=== PATIENT | male | born 1985 | race Caucasian/White ===

== ENCOUNTER 2018-09-23 04:07 | Emergency (ER) | payer BC, OTHER ==
[2018-09-23] MEDS ORDERED: BACTRIM DS TABLET PO ONE ×2 (04:30→04:32)
--- NOTE | 2018-09-23 04:36 | ERPHSYRPT ---
- History of Present Illness Time Seen by Provider: 09/23/18 04:31 Source: patient Exam Limitations: no limitations Patient Subjective Stated Complaint: Allergic reaction/wasp sting Triage Nursing Assessment: Patient ambulated into ED and transferred self to bed. Patient states he was stung by a wasp or hornet on Sunday evening on the tip of his right hand, 4th digit. Patient's right hand, 4th digit noted to be red, warm and swollen. Patient states pain is intermittent 3/10. Patient denies sob or difficulty swallowing. Physician History: 33-year-old white male arrives with complaint of erythema and edema to his right fourth finger symptoms since Sunday 2 days ago. According to patient he was stung by a wasp 2 days ago he has erythema in the edema to his right fourth finger he denies any other complaints. Patient has no nausea no vomiting no fevers. past medical history includes anxiety. Past surgical history negative. Patient states his tetanus was last year. Occurred: days ago (2 days ago) Method of Injury: other (stung by wasp) Quality: constant Severity of Pain-Max: moderate Severity of Pain-Current: mild Extremities Pain Location: 4th finger: right Allergies/Adverse Reactions: No Known Drug Allergies Allergy (Verified 09/23/18 04:12) Hx Tetanus, Diphtheria Vaccination/Date Given: No Hx Influenza Vaccination/Date Given: No Hx Pneumococcal Vaccination/Date Given: No Immunizations Up to Date: Yes - Review of Systems Constitutional: No Fever, No Chills Eyes: No Symptoms Ears, Nose, & Throat: No Symptoms Respiratory: No Cough, No Dyspnea Cardiac: No Chest Pain, No Edema, No Syncope Abdominal/Gastrointestinal: No Abdominal Pain, No Nausea, No Vomiting, No Diarrhea Genitourinary Symptoms: No No Symptoms, No Dysuria Musculoskeletal: Other ( erythema and edema right fourth finger) Skin: Other (erythema right fourth finger) Neurological: No Dizziness, No Focal Weakness, No Sensory Changes Psychological: No Symptoms Endocrine: No Symptoms All Other Systems: Reviewed and Negative - Past Medical History Pertinent Past Medical History: Yes Neurological History: No Pertinent History ENT History: No Pertinent History Cardiac History: No Pertinent History Respiratory History: No Pertinent History Endocrine Medical History: No Pertinent History Musculoskeletal History: No Pertinent History GI Medical History: No Pertinent History History: No Pertinent History Psycho-Social History: Anxiety Male Reproductive Disorders: No Pertinent History - Past Surgical History Past Surgical History: No Neuro Surgical History: No Pertinent History Cardiac: No Pertinent History Respiratory: No Pertinent History Gastrointestinal: No Pertinent History Genitourinary: No Pertinent History Musculoskeletal: No Pertinent History Male Surgical History: No Pertinent History - Social History Smoking Status: Never smoker Exposure to second hand smoke: Yes Drug Use: none Patient Lives Alone: No - Nursing Vital Signs Nursing Vital Signs: Initial Vital Signs Temperature 98.3 F 09/23/18 04:14 Pulse Rate 85 09/23/18 04:14 Respiratory Rate 18 09/23/18 04:14 Blood Pressure 125/72 09/23/18 04:14 O2 Sat by Pulse Oximetry 97 09/23/18 04:14 Pain Scale Pain Intensity 3 - Physical Exam General Appearance: mild distress, alert Eyes, Ears, Nose, Throat Exam: moist mucous membranes Neck Exam: non-tender, supple Cardiovascular/Respiratory Exam: chest non-tender, normal breath sounds, regular rate/rhythm, no respiratory distress Abdominal Exam: non-tender, No guarding Back Exam: normal inspection, No vertebral tenderness Shoulder Exam: normal inspection, non-tender, no evidence of injury, normal ROM Elbow/Forearm Exam: normal inspection, non-tender, no evidence of injury, normal ROM Wrist Exam: normal inspection, non-tender, no evidence of injury, normal ROM Hand Exam: No normal inspection (right fourth finger with in the same as a small punctate area dorsal distal right fourth finger representing a wasp sting no stinger is noted.) Neuro/Tendon Exam: normal sensation, normal motor functions Mental Status Exam: alert, oriented x 3, cooperative Skin Exam: other (Erythema right fourth finger) SpO2 Interpretation: normal (97%) SpO2: 97 Ordered Tests: Medication Summary Discontinued Medications Generic Name Dose Route Start Last Admin Trade Name Francq PRN Reason Stop Dose Admin Trimethoprim/Sulfamethoxazole 1 tab 09/23/18 04:30 09/23/18 04:33 Bactrim Ds Tablet PO 09/23/18 04:31 1 tab STAT ONE Administration Trimethoprim/Sulfamethoxazole Confirm 09/23/18 04:32 Bactrim Ds Tablet Administered 09/23/18 04:33 Dose 1 tab PO .STK-MED ONE - Progress Progress: improved Progress Note: 09/23/18 04:38 33-year-old white male arrives with complaint of erythema edema right fourth finger symptoms for 2 days. He states that he was stung by a wasp on the right fourth finger on examination he is in moderate amount of erythema and edema to the right fourth finger. Will go ahead and give patient Rocephin 1 g IM. Plan home on Bactrim DS one orally twice a day for 10 days patient can continue Benadry 50 mg every 6 hours as needed for 2-3 days. . - Departure Departure Disposition: Home Clinical Impression: insect sting right fourth finger, Cellulitis of finger of right hand Condition: Fair Critical Care Time: No Referrals: KLAUS PRATT [Primary Care Provider] - Additional Instructions: Return home. Benadryl 50 mg orally every 6 hours for 2-3 days as needed. Bactrim DS one orally twice a day for 5 days. Followup with your family if symptoms are worse not markedly improved in 48 hours or persist longer than 72 hours. Return for acute distress or for severe symptoms. Prescriptions: Smz/Tmp Ds Tablet [Bactrim Ds Tablet] 1 tab PO BID #20 tablet
[2018-09-23] MEDS ORDERED: Rocephin 1000 MG INJ IM ONE (04:37)
[2018-09-23] MEDS ORDERED: Rocephin 1000 MG INJ ONE (04:38)
[2018-09-23] MEDS ORDERED: XYLOCAINE 1% HCL 20 ML MDV ONE (04:38)
[2018-09-23 04:56] VITALS: BP 100/66; PULSE 80; O2SAT 96
== END 2018-09-23 04:56 | disposition home or self-care (01) ==
LOC: ED 04:07
DX: L03.113 Cellulitis of right upper limb (principal); M79.645 Pain in left finger(s); W57.XXXA Bitten or stung by nonvenomous insect and other nonvenomous arthropods, initial encounter; T78.49XA Other allergy, initial encounter; F41.9 Anxiety disorder, unspecified
CPT/HCPCS: 96372; 99283; J0696; A9270-GY

== ENCOUNTER 2020-11-16 11:24 | Emergency (ER) | payer BC ==
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
[2020-11-16 11:35] VITALS: BP 105/68; PULSE 91; O2SAT 98
[2020-11-16] MEDS ORDERED: Hydromorphone 1 mg/ml Injection IM ONE (11:48)
[2020-11-16] MEDS ORDERED: Norflex 60 MG/2 ML IM ONE (11:49)
[2020-11-16] MEDS ORDERED: ZOFRAN ODT 4 MG PO ONE (11:50)
[2020-11-16] MEDS ORDERED: Norflex 60 MG/2 ML ONE (11:53)
[2020-11-16] MEDS ORDERED: ZOFRAN ODT 4 MG ONE (11:53)
[2020-11-16] MEDS ORDERED: Hydromorphone 1 mg/ml Injection ONE (11:53)
--- NOTE | 2020-11-16 12:25 | XRAY ---
Indication: Pain following trauma. Comparison: None 2 view right ribs obtained using portable technique. No bony, articular, or soft tissue abnormalities.
== END 2020-11-16 12:38 | disposition home or self-care (01) ==
LOC: ED 11:24
DX: S20.211A Contusion of right front wall of thorax, initial encounter (principal); Z79.899 Other long term (current) drug therapy; Y04.0XXA Assault by unarmed brawl or fight, initial encounter; Y92.149 Unspecified place in prison as the place of occurrence of the external cause
CPT/HCPCS: 71100; 96372; 99284; J1170; J2360; Q0162